=== PATIENT | male | born 1970 | race Caucasian/White ===

== ENCOUNTER 2023-06-04 07:49 | Outpatient (CLI) | payer BC, SELFPAY | END 2023-06-04 07:50 | disposition home or self-care (01) | LOC: WOUND 07:53 | PROVIDERS: PCP Family Medicine; Visit Provider Physician Assistant Surgical | DX: S31.104A Unspecified open wound of abdominal wall, left lower quadrant without penetration into peritoneal cavity, initial encounter (principal); I10 Essential (primary) hypertension; I48.91 Unspecified atrial fibrillation; Z85.46 Personal history of malignant neoplasm of prostate | CPT/HCPCS: 99203 ==

== ENCOUNTER 2023-06-11 13:09 | Outpatient (CLI) | payer BC, SELFPAY ==
--- NOTE | 2023-06-11 14:00 | CRLHL7_ITS ---
For Patients: As a result of the Century Cures Act, medical imaging exams and procedure reports are released immediately into your electronic medical record. You may view this report before your referring provider. If you have questions, please contact your health care provider. Indication: open wound abdominal wall of left groin Technique: Postcontrast CT pelvis soft tissue. 99 cc Isovue 370 intravenous contrast. Please note that all CT scans at this facility use dose modulation, iterative reconstruction, and/or weight-based dosing when appropriate to reduce radiation dose to as low as reasonably achievable. Comparison: None Findings: Postoperative changes of prostatectomy with lymph node dissection. Thickening of the bladder wall noted likely secondary to incomplete distension. Trace pelvic free fluid. No abscess. 2.5 x 0.9 cm oblong circumscribed fluid collection with enhancing margin within the left inguinal subcutaneous fat extending to the skin corresponding to the area of concern. No soft tissue gas noted. Stranding in the pelvic soft tissues. Mild diverticulosis. No diverticulitis. The appendix is within normal limits. No enlarged lymph nodes are present. Degenerative disc disease L5-S1 with discogenic spurring and vacuum disc phenomenon. No intrinsic osseous lesion. Impression: Postoperative changes of prostatectomy with postop changes to the pelvic soft tissues and trace incidental pelvic free fluid. There is an oblong subcutaneous fluid collection/subcutaneous abscess within the left groin subcutaneous fat extending to the skin measuring 2.5 cm in length and measuring 9 millimeters in width, corresponding to the area of concern. No soft tissue gas. No hernia defect. No adenopathy. Please note that all CT scans at this facility use dose modulation, iterative reconstruction, and/or weight-based dosing when appropriate to reduce radiation dose to as low as reasonably achievable. Dictated by Dmitry Malloy MD @ 06/12/2023 12:31:24 PM (Electronically Signed)
== END 2023-06-11 13:10 | disposition home or self-care (01) ==
LOC: CT 13:10
PROVIDERS: PCP Family Medicine; Visit Provider Physician Assistant Surgical
DX: S31.104A Unspecified open wound of abdominal wall, left lower quadrant without penetration into peritoneal cavity, initial encounter (principal)
CPT/HCPCS: 72193; Q9967

== ENCOUNTER 2023-06-12 10:33 | Outpatient (CLI) | payer BC, SELFPAY | END 2023-06-12 10:34 | disposition home or self-care (01) | LOC: WOUND 10:33 | PROVIDERS: PCP Family Medicine; Visit Provider Nurse Practitioner Family | DX: E11.628 Type 2 diabetes mellitus with other skin complications (principal); E11.22 Type 2 diabetes mellitus with diabetic chronic kidney disease; N18.9 Chronic kidney disease, unspecified; T81.31XA Disruption of external operation (surgical) wound, not elsewhere classified, initial encounter; Z79.85 Long-term (current) use of injectable non-insulin antidiabetic drugs | CPT/HCPCS: 11042; 87070; 87186 ==

== ENCOUNTER 2023-06-19 14:00 | Outpatient (CLI) | payer BC, SELFPAY ==
[2023-06-19 11:51] LABS: Hemoglobin A1C* 9.36 % (0-5.6)
[2023-06-20 15:04] LABS: Prealbumin 25.4 mg/dL (20.0-40.0)
[2023-06-21 00:15] LABS: Zinc, Serum/Plasma 81.6 ug/dL (60.0-120.0)
== END 2023-06-19 14:34 | disposition home or self-care (01) ==
LOC: WOUND 07-18 10:19
PROVIDERS: PCP Family Medicine; Visit Provider Nurse Practitioner Family
DX: E11.628 Type 2 diabetes mellitus with other skin complications (principal); T81.31XA Disruption of external operation (surgical) wound, not elsewhere classified, initial encounter; E11.22 Type 2 diabetes mellitus with diabetic chronic kidney disease; N18.9 Chronic kidney disease, unspecified; Z79.85 Long-term (current) use of injectable non-insulin antidiabetic drugs; Z13.21 Encounter for screening for nutritional disorder
CPT/HCPCS: 11042; 36415; 82728; 83036; 84134; 84630

== ENCOUNTER 2023-06-26 08:58 | Outpatient (CLI) | payer BC, SELFPAY | END 2023-06-26 08:59 | disposition home or self-care (01) | LOC: WOUND 08:58 | PROVIDERS: PCP Family Medicine; Visit Provider Nurse Practitioner Family | DX: E11.628 Type 2 diabetes mellitus with other skin complications (principal); T81.31XA Disruption of external operation (surgical) wound, not elsewhere classified, initial encounter; E11.22 Type 2 diabetes mellitus with diabetic chronic kidney disease; N18.9 Chronic kidney disease, unspecified; Z79.85 Long-term (current) use of injectable non-insulin antidiabetic drugs | CPT/HCPCS: 11042 ==

== ENCOUNTER 2023-06-30 15:20 | Outpatient (CLI) | payer BC, SELFPAY | END 2023-06-30 15:21 | disposition home or self-care (01) | LOC: WOUND 15:20 | PROVIDERS: PCP Family Medicine; Visit Provider Nurse Practitioner Family | DX: T81.31XA Disruption of external operation (surgical) wound, not elsewhere classified, initial encounter (principal) | CPT/HCPCS: 99212 ==

== ENCOUNTER 2023-07-03 10:38 | Outpatient (CLI) | payer BC, SELFPAY | END 2023-07-03 10:39 | disposition home or self-care (01) | LOC: WOUND 10:38 | PROVIDERS: PCP Family Medicine; Visit Provider Nurse Practitioner Family | DX: E11.628 Type 2 diabetes mellitus with other skin complications (principal); T81.31XA Disruption of external operation (surgical) wound, not elsewhere classified, initial encounter; E11.22 Type 2 diabetes mellitus with diabetic chronic kidney disease; N18.9 Chronic kidney disease, unspecified; Z79.85 Long-term (current) use of injectable non-insulin antidiabetic drugs | CPT/HCPCS: 11042 ==

== ENCOUNTER 2023-07-07 15:23 | Outpatient (CLI) | payer BC, SELFPAY | END 2023-07-07 15:24 | disposition home or self-care (01) | LOC: WOUND 15:23 | PROVIDERS: PCP Family Medicine; Visit Provider Nurse Practitioner Family | DX: T81.31XA Disruption of external operation (surgical) wound, not elsewhere classified, initial encounter (principal) | CPT/HCPCS: 99212 ==

== ENCOUNTER 2023-07-10 11:02 | Outpatient (CLI) | payer BC, SELFPAY | END 2023-07-10 11:03 | disposition home or self-care (01) | LOC: WOUND 11:02 | PROVIDERS: PCP Family Medicine; Visit Provider Nurse Practitioner Family | DX: E11.628 Type 2 diabetes mellitus with other skin complications (principal); T81.31XA Disruption of external operation (surgical) wound, not elsewhere classified, initial encounter; E11.22 Type 2 diabetes mellitus with diabetic chronic kidney disease; N18.9 Chronic kidney disease, unspecified; Z79.85 Long-term (current) use of injectable non-insulin antidiabetic drugs | CPT/HCPCS: 11042 ==

== ENCOUNTER 2023-07-14 15:36 | Outpatient (CLI) | payer BC, SELFPAY | END 2023-07-14 15:37 | disposition home or self-care (01) | LOC: WOUND 15:36 | PROVIDERS: PCP Family Medicine; Visit Provider Nurse Practitioner Family | DX: T81.31XA Disruption of external operation (surgical) wound, not elsewhere classified, initial encounter (principal) | CPT/HCPCS: 99211 ==

== ENCOUNTER 2023-07-17 08:37 | Outpatient (CLI) | payer BC, SELFPAY | END 2023-07-17 08:38 | disposition home or self-care (01) | PROVIDERS: PCP Family Medicine; Visit Provider Nurse Practitioner Family | DX: E11.628 Type 2 diabetes mellitus with other skin complications (principal); T81.31XA Disruption of external operation (surgical) wound, not elsewhere classified, initial encounter; E11.22 Type 2 diabetes mellitus with diabetic chronic kidney disease; N18.9 Chronic kidney disease, unspecified; Z79.85 Long-term (current) use of injectable non-insulin antidiabetic drugs | CPT/HCPCS: 11042 ==

== ENCOUNTER 2023-07-22 13:45 | Outpatient (CLI) | payer BC, SELFPAY | END 2023-07-22 13:46 | disposition home or self-care (01) | LOC: WOUND 13:45 | PROVIDERS: PCP Family Medicine; Visit Provider Nurse Practitioner Family | DX: E11.628 Type 2 diabetes mellitus with other skin complications (principal); T81.31XA Disruption of external operation (surgical) wound, not elsewhere classified, initial encounter; Z79.85 Long-term (current) use of injectable non-insulin antidiabetic drugs | CPT/HCPCS: 99212 ==

== ENCOUNTER 2023-07-24 08:45 | Outpatient (CLI) | payer BC, SELFPAY | END 2023-07-24 08:46 | disposition home or self-care (01) | LOC: WOUND 08:45 | PROVIDERS: PCP Family Medicine; Visit Provider Nurse Practitioner Family | DX: T81.31XA Disruption of external operation (surgical) wound, not elsewhere classified, initial encounter (principal); E11.628 Type 2 diabetes mellitus with other skin complications; E11.22 Type 2 diabetes mellitus with diabetic chronic kidney disease; N18.9 Chronic kidney disease, unspecified; Z79.85 Long-term (current) use of injectable non-insulin antidiabetic drugs | CPT/HCPCS: 99212 ==

== ENCOUNTER 2023-07-29 08:27 | Outpatient (CLI) | payer BC, SELFPAY | END 2023-07-29 08:28 | disposition home or self-care (01) | LOC: WOUND 08:27 | PROVIDERS: PCP Family Medicine; Visit Provider Nurse Practitioner Family | DX: T81.31XA Disruption of external operation (surgical) wound, not elsewhere classified, initial encounter (principal) | CPT/HCPCS: 99212 ==

== ENCOUNTER 2023-07-31 08:44 | Outpatient (CLI) | payer BC, SELFPAY | END 2023-07-31 08:45 | disposition home or self-care (01) | PROVIDERS: PCP Family Medicine; Visit Provider Nurse Practitioner Family | DX: T81.31XA Disruption of external operation (surgical) wound, not elsewhere classified, initial encounter (principal); E11.628 Type 2 diabetes mellitus with other skin complications; Z79.85 Long-term (current) use of injectable non-insulin antidiabetic drugs | CPT/HCPCS: 97602; 99212 ==

== ENCOUNTER 2023-08-05 08:34 | Outpatient (CLI) | payer BC, SELFPAY | END 2023-08-05 08:35 | disposition home or self-care (01) | LOC: WOUND 08:34 | PROVIDERS: PCP Family Medicine; Visit Provider Nurse Practitioner Family | DX: T81.31XA Disruption of external operation (surgical) wound, not elsewhere classified, initial encounter (principal) | CPT/HCPCS: 99212 ==

== ENCOUNTER 2023-08-07 10:52 | Outpatient (CLI) | payer BC, SELFPAY | END 2023-08-07 10:53 | disposition home or self-care (01) | LOC: WOUND 10:52 | PROVIDERS: PCP Family Medicine; Visit Provider Nurse Practitioner Family | DX: T81.31XA Disruption of external operation (surgical) wound, not elsewhere classified, initial encounter (principal); E11.628 Type 2 diabetes mellitus with other skin complications | CPT/HCPCS: 97597 ==

== ENCOUNTER 2023-08-12 10:56 | Outpatient (CLI) | payer BC, SELFPAY | END 2023-08-12 10:57 | disposition home or self-care (01) | LOC: WOUND 08-19 13:26 | PROVIDERS: PCP Family Medicine; Visit Provider Nurse Practitioner Family | DX: T81.31XA Disruption of external operation (surgical) wound, not elsewhere classified, initial encounter (principal); E11.628 Type 2 diabetes mellitus with other skin complications; Z79.85 Long-term (current) use of injectable non-insulin antidiabetic drugs | CPT/HCPCS: 99212 ==

== ENCOUNTER 2023-08-14 08:38 | Outpatient (CLI) | payer BC, SELFPAY | END 2023-08-14 08:39 | disposition home or self-care (01) | LOC: WOUND 08:39 | PROVIDERS: PCP Family Medicine; Visit Provider Nurse Practitioner Family | DX: T81.31XA Disruption of external operation (surgical) wound, not elsewhere classified, initial encounter (principal); E11.628 Type 2 diabetes mellitus with other skin complications; Z79.85 Long-term (current) use of injectable non-insulin antidiabetic drugs | CPT/HCPCS: 97597 ==

== ENCOUNTER 2023-08-19 11:35 | Outpatient (CLI) | payer BC, SELFPAY | END 2023-08-19 11:36 | disposition home or self-care (01) | LOC: WOUND 11:35 | PROVIDERS: PCP Family Medicine; Visit Provider Nurse Practitioner Family | DX: T81.31XA Disruption of external operation (surgical) wound, not elsewhere classified, initial encounter (principal); E11.628 Type 2 diabetes mellitus with other skin complications; Z79.85 Long-term (current) use of injectable non-insulin antidiabetic drugs | CPT/HCPCS: 99211 ==

== ENCOUNTER 2023-08-21 11:23 | Outpatient (CLI) | payer BC, SELFPAY | END 2023-08-21 11:24 | disposition home or self-care (01) | LOC: WOUND 11:23 | PROVIDERS: PCP Family Medicine; Visit Provider Nurse Practitioner Family | DX: T81.31XA Disruption of external operation (surgical) wound, not elsewhere classified, initial encounter (principal); E11.628 Type 2 diabetes mellitus with other skin complications; E11.22 Type 2 diabetes mellitus with diabetic chronic kidney disease; N18.31 Chronic kidney disease, stage 3a; Z79.85 Long-term (current) use of injectable non-insulin antidiabetic drugs | CPT/HCPCS: 97597 ==

== ENCOUNTER 2023-08-26 11:35 | Outpatient (CLI) | payer BC, SELFPAY | END 2023-08-26 11:36 | disposition home or self-care (01) | LOC: WOUND 11:35 | PROVIDERS: PCP Family Medicine; Visit Provider Nurse Practitioner Family | DX: T81.31XA Disruption of external operation (surgical) wound, not elsewhere classified, initial encounter (principal); E11.628 Type 2 diabetes mellitus with other skin complications; Z79.85 Long-term (current) use of injectable non-insulin antidiabetic drugs | CPT/HCPCS: 99212 ==

== ENCOUNTER 2023-08-28 09:52 | Outpatient (CLI) | payer BC, SELFPAY | END 2023-08-28 09:53 | disposition home or self-care (01) | LOC: WOUND 09:52 | PROVIDERS: PCP Family Medicine; Visit Provider Nurse Practitioner Family | DX: T81.31XA Disruption of external operation (surgical) wound, not elsewhere classified, initial encounter (principal); E11.628 Type 2 diabetes mellitus with other skin complications; Z79.85 Long-term (current) use of injectable non-insulin antidiabetic drugs | CPT/HCPCS: 11042 ==

== ENCOUNTER 2023-09-02 11:31 | Outpatient (CLI) | payer BC, SELFPAY | END 2023-09-02 11:32 | disposition home or self-care (01) | LOC: WOUND 11:31 | PROVIDERS: PCP Family Medicine; Visit Provider Nurse Practitioner Family | DX: T81.31XA Disruption of external operation (surgical) wound, not elsewhere classified, initial encounter (principal) | CPT/HCPCS: 99212 ==

== ENCOUNTER 2023-09-04 10:37 | Outpatient (CLI) | payer BC, SELFPAY | END 2023-09-04 10:38 | disposition home or self-care (01) | LOC: WOUND 10:37 | PROVIDERS: PCP Family Medicine; Visit Provider Nurse Practitioner Family | DX: T81.31XA Disruption of external operation (surgical) wound, not elsewhere classified, initial encounter (principal); E11.628 Type 2 diabetes mellitus with other skin complications; Z79.85 Long-term (current) use of injectable non-insulin antidiabetic drugs | CPT/HCPCS: 99212 ==

== ENCOUNTER 2023-09-09 11:30 | Outpatient (CLI) | payer BC, SELFPAY | END 2023-09-09 11:31 | disposition home or self-care (01) | LOC: WOUND 11:30 | PROVIDERS: PCP Family Medicine; Visit Provider Nurse Practitioner Family | DX: T81.31XA Disruption of external operation (surgical) wound, not elsewhere classified, initial encounter (principal); E11.628 Type 2 diabetes mellitus with other skin complications; Z79.85 Long-term (current) use of injectable non-insulin antidiabetic drugs | CPT/HCPCS: 99212 ==

== ENCOUNTER 2023-09-11 11:13 | Outpatient (CLI) | payer BC, SELFPAY | END 2023-09-11 11:14 | disposition home or self-care (01) | LOC: WOUND 11:13 | PROVIDERS: PCP Family Medicine; Visit Provider Nurse Practitioner Family | DX: T81.31XA Disruption of external operation (surgical) wound, not elsewhere classified, initial encounter (principal); E11.628 Type 2 diabetes mellitus with other skin complications; Z79.85 Long-term (current) use of injectable non-insulin antidiabetic drugs | CPT/HCPCS: 11042 ==

== ENCOUNTER 2023-09-15 14:56 | Outpatient (CLI) | payer BC, SELFPAY | END 2023-09-15 14:57 | disposition home or self-care (01) | LOC: WOUND 14:56 | PROVIDERS: PCP Family Medicine; Visit Provider Nurse Practitioner Family | DX: T81.31XA Disruption of external operation (surgical) wound, not elsewhere classified, initial encounter (principal); E11.628 Type 2 diabetes mellitus with other skin complications; Z79.85 Long-term (current) use of injectable non-insulin antidiabetic drugs | CPT/HCPCS: 11042 ==

== ENCOUNTER 2023-09-17 07:47 | Outpatient (CLI) | payer BC, SELFPAY | END 2023-09-17 07:48 | disposition home or self-care (01) | PROVIDERS: PCP Family Medicine; Visit Provider Surgery | DX: T81.31XA Disruption of external operation (surgical) wound, not elsewhere classified, initial encounter (principal); E11.628 Type 2 diabetes mellitus with other skin complications; Z79.85 Long-term (current) use of injectable non-insulin antidiabetic drugs | CPT/HCPCS: 97597 ==

== ENCOUNTER 2023-09-19 15:41 | Outpatient (CLI) | payer BC, SELFPAY | END 2023-09-19 15:42 | disposition home or self-care (01) | LOC: WOUND 15:41 | PROVIDERS: PCP Family Medicine; Visit Provider Nurse Practitioner Family | DX: T81.31XA Disruption of external operation (surgical) wound, not elsewhere classified, initial encounter (principal); E11.628 Type 2 diabetes mellitus with other skin complications; Z79.85 Long-term (current) use of injectable non-insulin antidiabetic drugs | CPT/HCPCS: 99212 ==

== ENCOUNTER 2023-09-22 14:25 | Outpatient (CLI) | payer BC, SELFPAY | END 2023-09-22 14:26 | disposition home or self-care (01) | LOC: WOUND 14:25 | PROVIDERS: PCP Family Medicine; Visit Provider Nurse Practitioner Family | DX: T81.31XA Disruption of external operation (surgical) wound, not elsewhere classified, initial encounter (principal); E11.628 Type 2 diabetes mellitus with other skin complications; Z79.85 Long-term (current) use of injectable non-insulin antidiabetic drugs | CPT/HCPCS: 11042 ==

== ENCOUNTER 2023-09-24 11:07 | Outpatient (CLI) | payer BC, SELFPAY | END 2023-09-24 11:08 | disposition home or self-care (01) | PROVIDERS: PCP Family Medicine; Visit Provider Nurse Practitioner Family | DX: T81.31XA Disruption of external operation (surgical) wound, not elsewhere classified, initial encounter (principal); E11.628 Type 2 diabetes mellitus with other skin complications; Z79.85 Long-term (current) use of injectable non-insulin antidiabetic drugs | CPT/HCPCS: 99212 ==

== ENCOUNTER 2023-09-26 10:09 | Outpatient (CLI) | payer BC, SELFPAY | END 2023-09-26 10:10 | disposition home or self-care (01) | LOC: WOUND 10:09 | PROVIDERS: PCP Family Medicine; Visit Provider Nurse Practitioner Family | DX: T81.31XA Disruption of external operation (surgical) wound, not elsewhere classified, initial encounter (principal); E11.628 Type 2 diabetes mellitus with other skin complications; Z79.85 Long-term (current) use of injectable non-insulin antidiabetic drugs | CPT/HCPCS: 99212 ==

== ENCOUNTER 2023-09-29 13:47 | Outpatient (CLI) | payer BC, SELFPAY | END 2023-09-29 13:48 | disposition home or self-care (01) | LOC: WOUND 13:47 | PROVIDERS: PCP Family Medicine; Visit Provider Family Medicine | DX: T81.31XA Disruption of external operation (surgical) wound, not elsewhere classified, initial encounter (principal); E11.628 Type 2 diabetes mellitus with other skin complications; Z79.85 Long-term (current) use of injectable non-insulin antidiabetic drugs | CPT/HCPCS: 97597 ==

== ENCOUNTER 2023-10-01 11:17 | Outpatient (CLI) | payer BC, SELFPAY | END 2023-10-01 11:18 | disposition home or self-care (01) | LOC: WOUND 11:17 | PROVIDERS: PCP Family Medicine; Visit Provider Family Medicine | DX: T81.31XA Disruption of external operation (surgical) wound, not elsewhere classified, initial encounter (principal); E11.628 Type 2 diabetes mellitus with other skin complications; Z79.85 Long-term (current) use of injectable non-insulin antidiabetic drugs | CPT/HCPCS: 99212 ==

== ENCOUNTER 2023-10-03 15:09 | Outpatient (CLI) | payer BC, SELFPAY | END 2023-10-03 15:10 | disposition home or self-care (01) | LOC: WOUND 15:09 | PROVIDERS: PCP Family Medicine; Visit Provider Family Medicine | DX: T81.31XA Disruption of external operation (surgical) wound, not elsewhere classified, initial encounter (principal); E11.628 Type 2 diabetes mellitus with other skin complications; Z79.85 Long-term (current) use of injectable non-insulin antidiabetic drugs | CPT/HCPCS: 99212 ==

== ENCOUNTER 2023-10-06 13:43 | Outpatient (CLI) | payer BC, SELFPAY | END 2023-10-06 13:44 | disposition home or self-care (01) | LOC: WOUND 13:44 | PROVIDERS: PCP Family Medicine; Visit Provider Nurse Practitioner Family | DX: T81.31XA Disruption of external operation (surgical) wound, not elsewhere classified, initial encounter (principal); E11.628 Type 2 diabetes mellitus with other skin complications; Z79.85 Long-term (current) use of injectable non-insulin antidiabetic drugs | CPT/HCPCS: 97597 ==

== ENCOUNTER 2023-10-08 15:37 | Outpatient (CLI) | payer BC, SELFPAY | END 2023-10-08 15:38 | disposition home or self-care (01) | LOC: WOUND 15:37 | PROVIDERS: PCP Family Medicine; Visit Provider Nurse Practitioner Family | DX: T81.31XA Disruption of external operation (surgical) wound, not elsewhere classified, initial encounter (principal); E11.628 Type 2 diabetes mellitus with other skin complications; Z79.85 Long-term (current) use of injectable non-insulin antidiabetic drugs | CPT/HCPCS: 99212 ==

== ENCOUNTER 2023-10-13 15:38 | Outpatient (CLI) | payer BC, SELFPAY | END 2023-10-13 15:39 | disposition home or self-care (01) | LOC: WOUND 15:39 | PROVIDERS: PCP Family Medicine; Visit Provider Nurse Practitioner Family | DX: T81.31XA Disruption of external operation (surgical) wound, not elsewhere classified, initial encounter (principal); E11.628 Type 2 diabetes mellitus with other skin complications; Z79.85 Long-term (current) use of injectable non-insulin antidiabetic drugs | CPT/HCPCS: 11042 ==

== ENCOUNTER 2023-10-15 15:35 | Outpatient (CLI) | payer BC, SELFPAY | END 2023-10-15 15:36 | disposition home or self-care (01) | LOC: WOUND 15:35 | PROVIDERS: PCP Family Medicine; Visit Provider Nurse Practitioner Family | DX: T81.31XA Disruption of external operation (surgical) wound, not elsewhere classified, initial encounter (principal); E11.628 Type 2 diabetes mellitus with other skin complications; Z79.85 Long-term (current) use of injectable non-insulin antidiabetic drugs | CPT/HCPCS: 99212 ==

== ENCOUNTER 2023-10-17 15:19 | Outpatient (CLI) | payer BC, SELFPAY | END 2023-10-17 15:20 | disposition home or self-care (01) | LOC: WOUND 15:19 | PROVIDERS: PCP Family Medicine; Visit Provider Nurse Practitioner Family | DX: T81.31XA Disruption of external operation (surgical) wound, not elsewhere classified, initial encounter (principal); E11.628 Type 2 diabetes mellitus with other skin complications; Z79.85 Long-term (current) use of injectable non-insulin antidiabetic drugs | CPT/HCPCS: 99212 ==

== ENCOUNTER 2023-10-20 13:46 | Outpatient (CLI) | payer BC, SELFPAY | END 2023-10-20 13:47 | disposition home or self-care (01) | LOC: WOUND 13:46 | PROVIDERS: PCP Family Medicine; Visit Provider Nurse Practitioner Family | DX: T81.31XA Disruption of external operation (surgical) wound, not elsewhere classified, initial encounter (principal); E11.628 Type 2 diabetes mellitus with other skin complications; Z79.85 Long-term (current) use of injectable non-insulin antidiabetic drugs | CPT/HCPCS: 99212 ==

== ENCOUNTER 2023-10-27 14:25 | Outpatient (CLI) | payer BC, SELFPAY | END 2023-10-27 14:26 | disposition home or self-care (01) | LOC: WOUND 14:25 | PROVIDERS: PCP Family Medicine; Visit Provider Nurse Practitioner Family | DX: T81.31XA Disruption of external operation (surgical) wound, not elsewhere classified, initial encounter (principal); E11.628 Type 2 diabetes mellitus with other skin complications; Z79.85 Long-term (current) use of injectable non-insulin antidiabetic drugs | CPT/HCPCS: 99212 ==

== ENCOUNTER 2023-12-04 11:36 | Outpatient (CLI) | payer BC, SELFPAY | END 2023-12-04 11:37 | disposition home or self-care (01) | LOC: WOUND 11:36 | PROVIDERS: PCP Family Medicine; Visit Provider Nurse Practitioner Family | DX: T81.31XA Disruption of external operation (surgical) wound, not elsewhere classified, initial encounter (principal); E11.628 Type 2 diabetes mellitus with other skin complications; Z79.85 Long-term (current) use of injectable non-insulin antidiabetic drugs | CPT/HCPCS: 11042; 87070; 87186; 88305; G0463 ==

== ENCOUNTER 2023-12-10 13:35 | Outpatient (CLI) | payer BC, SELFPAY | END 2023-12-10 13:36 | disposition home or self-care (01) | LOC: WOUND 13:35 | PROVIDERS: PCP Family Medicine; Visit Provider Surgery | DX: T81.31XA Disruption of external operation (surgical) wound, not elsewhere classified, initial encounter (principal); E11.628 Type 2 diabetes mellitus with other skin complications; Z79.85 Long-term (current) use of injectable non-insulin antidiabetic drugs | CPT/HCPCS: 97597 ==

== ENCOUNTER 2023-12-17 14:47 | Outpatient (CLI) | payer BC, SELFPAY | END 2023-12-17 14:48 | disposition home or self-care (01) | LOC: WOUND 14:47 | PROVIDERS: PCP Family Medicine; Visit Provider Surgery | DX: T81.31XA Disruption of external operation (surgical) wound, not elsewhere classified, initial encounter (principal); E11.628 Type 2 diabetes mellitus with other skin complications; Z79.85 Long-term (current) use of injectable non-insulin antidiabetic drugs | CPT/HCPCS: G0463 ==

== ENCOUNTER 2023-12-31 14:45 | Outpatient (CLI) | payer BC, SELFPAY | END 2023-12-31 14:46 | disposition home or self-care (01) | LOC: WOUND 14:45 | PROVIDERS: PCP Family Medicine; Visit Provider Surgery | DX: T81.31XA Disruption of external operation (surgical) wound, not elsewhere classified, initial encounter (principal); E11.628 Type 2 diabetes mellitus with other skin complications; Z79.85 Long-term (current) use of injectable non-insulin antidiabetic drugs | CPT/HCPCS: G0463 ==